=== PATIENT | female | born 1950 | race Caucasian/White ===

== ENCOUNTER → 2016-09-19 | Outpatient (REF) | payer BC ==
[2016-09-19 14:09] LABS: REASON FOR REVIEW COMPREHENSIVE REVIEW
[2016-09-19 14:48] LABS: FOLATE 15.5 NG/ML (>5.4); VITAMIN B12 LEVEL > 2000 PG/ML (247-911)
== END ==
LOC: M LAB REF 13:48
PROVIDERS: ATTEND Internal Medicine Medical Oncology
DX: D72.819 Decreased white blood cell count, unspecified (principal)

== ENCOUNTER → 2018-11-18 | Outpatient (REF) | payer BC, MEDICARE | LOC: M LAB LCGH 17:35 | PROVIDERS: ATTEND Nurse Practitioner Family | DX: L82.0 Inflamed seborrheic keratosis (principal) ==